=== PATIENT | male | born 1960 | race Caucasian/White ===

== ENCOUNTER 2024-12-24 14:02 | Emergency (ER) | payer OTHER, MEDICARE, SELFPAY ==
[2024-12-24 14:11] VITALS: BP 166/80
[2024-12-24 14:33] LABS: Hematocrit 40.7 % (39.0-52.0); Hemoglobin 14.3 g/dL (13.0-18.0); Mean Corp Hgb Conc. 35.1 g/dL (33.0-37.0); Mean Corpuscular Volume 87.9 fL (80.0-94.0); Nucleated Red Blood Cells % 0 % (-); Platelet Count 267 10^3/uL (130-400); Red Cell Dist. Width 13.5 % (11.5-14.5)
[2024-12-24 14:47] LABS: ALT (SGPT) 27 U/L (0-50); AST (SGOT) 22 U/L (17-59); Albumin 4.7 g/dl (3.5-5.0); Alkaline Phosphatase 65 U/L (38-126); Blood Urea Nitrogen 19 mg/dl (9-20); Calcium 9.6 mg/dl (8.4-10.2); Carbon Dioxide 31 mmol/L (22-30); Chloride 102 mmol/L (98-107); Glucose 101 mg/dl (70-99); Potassium 4.2 mmol/L (3.5-5.1); Sodium 139 mmol/L (135-145); Total Protein 7.1 g/dl (6.3-8.2); eGFR > 60.00
--- NOTE | 2024-12-24 15:34 | ED.GENMED ---
Addendum entered and electronically signed by Ivana Holguin PA-C 12/26/24 06:16:
Preliminary culture grew out Staph aureus. Patient is on doxycycline await finalized culture results
Original Note:
History of Present Illness
<Nicole Martinez NAVIGATION TEACHER - Last Filed: 12/24/24 20:20>
General
Chief Complaint: Post Operative Problem(s)
Source: patient
Exam Limitations: none
Time Seen by Provider: 12/24/24 15:17
Nursing documentation reviewed up to this point in time: agreed with
History of Present Illness
History of Present Illness:
64 yo male w h/o A-fib on Eliquis, HTN, HLD, recent skin cancer removal from left shoulder area, left wrist trigger finger tendon release on 12/10 at [facility] in [place] by Dr. Nunn presents with increasing redness, swelling, pain, and pus drainage
at the site of a recent trigger finger repair surgery. The patient reports that the symptoms began approximately five days ago. Initially, the discomfort was attributed to post-surgical pain; however, the symptoms progressively worsened.
States small amount of honey colored drainage from wrist incision. Denies fever/ chills. Pain 11/14.
Past History
<Nicole Martinez, NAVIGATION TEACHER - Last Filed: 12/24/24 20:20>
Past History
ED Past Medical History: Arrthythmia (a fib on Eliquis), Cancer (skin, Mohs surgery left upper posterior shoulder last week, ), HTN and Hypercholesterolemia
ED Past Surgical History: Orthopedic
Social History
Tobacco: Non-smoker
Personal:
Living: with family
Employment: Employed
Review of Systems
<Nicole Martinez, NAVIGATION TEACHER - Last Filed: 12/24/24 20:20>
Review of Systems
Allergies reviewed?: Yes
All Other Systems: ROS reviewed and negative except as documented in HPI and ROS
Constitutional: Denies fever or chills
Skin: Reports other (swelling, redness, pain left wrist post surgery 14 days ago.)
Phy Exam
<Nicole Martinez NAVIGATION TEACHER - Last Filed: 12/24/24 20:20>
Physical Exam
Physical Exam:
GENERAL: No acute distress. A&Ox3.
CONSTITUTIONAL: Afebrile.
EYES: clear, conjunctivae normal
RESPIRATORY: Regular respirations, nonlabored, lungs clear.
CARDIOVASCULAR: Regular rate and rhythm, no murmurs, no rubs.
GI: Soft, nontender, normal BS
MUSCULOSKELETAL: Moves with ease. Well perfused.
SKIN: Warm, dry, pink, incision on mid left palm healing well. Incision on left wrist radial aspect red with tiny amount of clear yellow drainage. Wrist is +1 swollen compared to opposide wrist, limited ROM due to pain and swelling. Radial pulse
2/4, brisk capillary refill all fingers, all
PSYCH: Normal mood and affect. Well kept, interactive and appropriate
NEUROLOGIC: Awake, alert and oriented. No focal neurological deficits
Course
<Nicole Martinez, NAVIGATION TEACHER - Last Filed: 12/24/24 20:20>
Orders/Labs/Results
Orders:
Orders
12/24/24 14:20
CMP [Comprehensive Metabolic Panel] Urgent
Complete Blood Count/With Diff Urgent
12/24/24 16:04
Wound Culture [Wound/Abscess/Other Culture] Urgent
EMILY Source: Hand
Specimen Description: Left
Date Specimen was Collected: 12/24/24
Time Specimen was Collected: 15:52
12/24/24 16:23
CeFAZolin 2 GRAM [Ancef] 2 grams in 10 ml IV NOW
12/24/24 16:45
Acetaminophen [Tylenol] 1,000 mg PO NOW STA
Abnormal Lab Results
12/24/24
14:20
RBC 4.63 L 10^6/uL
(4.70-6.10)
Carbon Dioxide 31 H mmol/L
(22-30)
Glucose 101 H mg/dl
(70-99)
12/24/24 14:20
12/24/24 14:20
Vital Signs
Initial and Last Documented VS:
Initial Vital Signs
Temp Pulse Resp BP Pulse Ox
98.2 F 66 18 166/80 97
12/24/24 14:11 12/24/24 14:11 12/24/24 14:11 12/24/24 14:11 12/24/24 14:11
Last Documented Vital Signs
Temp Pulse Resp BP Pulse Ox
98.2 F 66 18 166/80 97
12/24/24 14:11 12/24/24 14:11 12/24/24 14:11 12/24/24 14:11 12/24/24 15:38
<Salomon Carolina, DO - Last Filed: 12/24/24 17:09>
Orders/Labs/Results
Orders:
Orders
12/24/24 14:20
CMP [Comprehensive Metabolic Panel] Urgent
Complete Blood Count/With Diff Urgent
12/24/24 16:04
Wound Culture [Wound/Abscess/Other Culture] Urgent
EMILY Source: Hand
Specimen Description: Left
Date Specimen was Collected: 12/24/24
Time Specimen was Collected: 15:52
12/24/24 16:23
CeFAZolin 2 GRAM [Ancef] 2 grams in 10 ml IV NOW
12/24/24 16:45
Acetaminophen [Tylenol] 1,000 mg PO NOW STA
Abnormal Lab Results
12/24/24
14:20
RBC 4.63 L 10^6/uL
(4.70-6.10)
Carbon Dioxide 31 H mmol/L
(22-30)
Glucose 101 H mg/dl
(70-99)
12/24/24 14:20
12/24/24 14:20
Vital Signs
Initial and Last Documented VS:
Initial Vital Signs
Temp Pulse Resp BP Pulse Ox
98.2 F 66 18 166/80 97
12/24/24 14:11 12/24/24 14:11 12/24/24 14:11 12/24/24 14:11 12/24/24 14:11
Last Documented Vital Signs
Temp Pulse Resp BP Pulse Ox
98.2 F 66 18 166/80 97
12/24/24 14:11 12/24/24 14:11 12/24/24 14:11 12/24/24 14:11 12/24/24 15:38
<Nicole Martinez, NAVIGATION TEACHER - Last Filed: 12/24/24 20:20>
MDM/Problems Addressed
Differential Diagnosis Includes:
cellulitis
MDM/Problems Addressed:
64 yo male w h/o A-fib on Eliquis, HTN, HLD, recent skin cancer removal from left shoulder area, left wrist trigger finger tendon release on 12/10 at [facility] in [place] by Dr. Nunn presents with increasing redness, swelling, pain, and pus drainage
at the site of a recent trigger finger repair surgery. The patient reports that the symptoms began approximately five days ago. Initially, the discomfort was attributed to post-surgical pain; however, the symptoms progressively worsened.
States small amount of honey colored drainage from wrist incision. Denies fever/ chills. Pain 11/14.
CBC unremarkable
CMP normal
IV Ancef in
5:[address] Nunn, orthopedic at [facility], spoke with SRIKANTH Heath, sent her pictures.
5:45 p.m.
Ivana ESTRELLA got back to me, requests Doxycycline 100 mg BID and she will call pt in the morning for f/u and appt.
<Nicole Martinez, NAVIGATION TEACHER - Last Filed: 12/24/24 20:20>
*Pulse Oximetry
SaO2: 97
Oxygen Mode of Delivery: Room air
Patient hypoxic: not evaluated
*Critical Care Note
Total Time (30-74mins, 75-104mins- exclusive of procedures): Not Applicable
ED Attending Note
<Nicole Martinez NAVIGATION TEACHER - Last Filed: 12/24/24 20:20>
-
Portions of this chart may have been created with voice recognition software.� Occasional wrong word or��sound alike� substitutions may have occurred due to the inherent limitations of voice recognition software.
<Salomon Carolina DO - Last Filed: 12/24/24 17:09>
ED Attending Note
Patient seen and examined by attending physician: Yes
ED Attending Note:
I have reviewed and agree with history and treatment plan by Nicole. My exam revealed 64-year-old male with left radial wrist wound and erythema surrounding. Will contact orthopedics, surgeon that was performed at [place].
Discharge Plan
Departure
Patient Disposition: Home (Routine Discharge)
Date of Disposition: 12/24/24
Time of Disposition: 17:44
Patient with high blood pressure during this ER visit?: No
Condition: Fair
Discharge Problem:
Cellulitis, wound, post-operative
Instructions: Cellulitis (skin infection) in adults - Discharge instructions
Prescriptions:
New
doxycycline hyclate 100 mg capsule
100 mg PO BID Qty: 20 0RF
oxycodone 5 mg capsule
5 mg PO Q6H PRN (Reason: Pain) Qty: 8 0RF
Referrals:
Franck Nunn MD [Non-Admitting Privileges, Orthopedics] - Tomorrow
Kaye Simms MD [Family Provider, Family Practice]
Activity Restrictions/Additional Instructions:
As we discussed, I spoke with Ivana at Dr. Nunn's office. She will give you a call tomorrow in the morning to schedule an appointment.
I sent a prescription to your pharmacy for doxycycline 100 mg to take twice a day for 10 days
Rest the arm with it elevated to the level of your heart or slightly higher
Tylenol as needed for pain. I sent a prescription to your pharmacy for Percocet (Oxycodone) to use if the Tylenol does not help
Interventions
Interventions:
*Risk Screen - Suicide Last Done: 12/24/24 14:11
*General Assessment Last Done: 12/24/24 14:11
*Neglect/Abuse Screening Last Done: 12/24/24 16:53
*ED- Fall Risk Assessment Last Done: 12/24/24 16:53
*ED COVID-19 Vaccine History Last Done: 12/24/24 16:53
*Nursing Disposition Last Done: 12/24/24 18:00
ED-Skin Assessment Last Done: 12/24/24 16:11
Discharge Date and Time
Discharge Date/Time: 12/24/24 18:00
Print Language: [id number]
[2024-12-24] MEDS: ANCEF 10 IV (16:49)
[2024-12-24] MEDS: TYLENOL 1000 MG PO (16:49)
== END 2024-12-24 18:00 | disposition home or self-care (01) ==
LOC: EMR 14:02
PROVIDERS: Student in an Organized Health Care Education/Training Program; EMERGENCY PHYSICIAN Emergency Medicine; FAMILY PHYSICIAN Family Medicine
DX: T81.49XA Infection following a procedure, other surgical site, initial encounter (principal); L03.114 Cellulitis of left upper limb; I48.91 Unspecified atrial fibrillation; I10 Essential (primary) hypertension; E78.00 Pure hypercholesterolemia, unspecified; Z79.01 Long term (current) use of anticoagulants; Z85.828 Personal history of other malignant neoplasm of skin
CPT/HCPCS: 99284; 96374; 80053; 85025; 87070; 87147; 87186; 87205

== ENCOUNTER 2025-04-01 12:45 | Emergency (ER) | payer MEDICARE, OTHER, SELFPAY ==
[2025-04-01 12:47] VITALS: BP 119/68
[2025-04-01 13:11] VITALS: BP 109/64
--- NOTE | 2025-04-01 13:20 | ED.GENMED ---
History of Present Illness
General
Chief Complaint: Medication Reaction
Time Seen by Provider: 04/01/25 13:09
History of Present Illness
History of Present Illness:
Patient is a 65-year-old man presenting to the emergency department with abdominal pain. Patient states he has been on Mounjaro for 11 weeks now. Last week he had his third week of 5 mg dose. He states after the third dose he developed abdominal
bloating pain nausea excessive flatulence, diarrhea and heartburn. Initially thought it was a stomach bug but then talked to his primary who stated that it could be secondary to the Mounjaro. He also had hives. He was given Zyrtec and the
symptoms did slightly improved. His symptoms are now resolved however he still has persistent abdominal pain to the left lower quadrant. He has a history of diverticulitis. His primary care sent him to the emergency department for further
evaluation given the ongoing abdominal pain. No fever or chills. No urinary symptoms. No scrotal swelling or pain.
Past History
Past History
ED Past Medical History: Arrthythmia (a fib on Eliquis), Cancer (skin, Mohs surgery left upper posterior shoulder last week, ), HTN and Hypercholesterolemia
ED Past Surgical History: Orthopedic
Social History
Tobacco: Non-smoker
Personal:
Living: with family
Employment: Employed
Phy Exam
Physical Exam
Physical Exam:
GENERAL: in no acute distress
HEENT: normocephalic, extraocular movements intact, moist oral mucosa
NECK: normal inspection
RESPIRATORY: no respiratory distress, clear to auscultation bilaterally
CARDIOVASCULAR: regular rate and rhythm
ABDOMEN/: soft, non-distended, tender to palpation in the left lower quad, no rebound or guarding
EXTREMITIES: non-tender, no edema/swelling
NEUROLOGIC: awake and alert, moves all extremities
SKIN: warm
Course
Orders/Labs/Results
Orders:
Orders
04/01/25 13:20
CT Abd/pelvis W Iv Cont Urgent
Comment:
Reason For Exam: llq pain
Urinalysis Reflex To Culture Urgent
04/01/25 13:39
Complete Blood Count/With Diff Urgent
Comprehensive Metabolic Panel Urgent
Abnormal Lab Results
04/01/25
13:39
RBC 4.59 L 10^6/uL
(4.70-6.10)
Absolute Neuts (auto) 6.7 H 10^3/uL
(1.4-6.5)
Absolute Monos (auto) 0.7 H 10^3/uL
(0.1-0.6)
Lymphocytes % 20.1 L %
(20.5-51.1)
Sodium 133 L mmol/L
(135-145)
Glucose 103 H mg/dl
(70-99)
Total Protein 5.8 L g/dl
(6.3-8.2)
04/01/25 13:39
04/01/25 13:39
Vital Signs
Initial and Last Documented VS:
Initial Vital Signs
Temp Pulse Resp BP Pulse Ox
98.6 F 78 18 119/68 98
04/01/25 12:47 04/01/25 12:47 04/01/25 12:47 04/01/25 12:47 04/01/25 12:47
Last Documented Vital Signs
Temp Pulse Resp BP Pulse Ox
98.6 F 72 19 114/62 95
04/01/25 12:47 04/01/25 14:45 04/01/25 14:45 04/01/25 14:00 04/01/25 14:45
MDM/Problems Addressed
Differential Diagnosis Includes:
Patient is a 65-year-old male on Mounjaro presenting to the emergency department with symptoms after increasing his Mounjaro dose that mostly resolved but has persistent left lower quadrant abdominal pain. On arrival vitals unremarkable. Exam does
show tenderness to the left lower quadrant. Differential is broad but consists of diverticulitis versus Mounjaro side effect versus gastroenteritis versus urinary tract infection though less likely. Will check blood work urine and CT scan. I did
offer pain control the patient declined at this time.
*Pulse Oximetry
SaO2: 98
Oxygen Mode of Delivery: Room air
Patient hypoxic: no
*Critical Care Note
Total Time (30-74mins, 75-104mins- exclusive of procedures): Not Applicable
Update Note
Update Note:
Blood work reassuring. CT scan consistent with diverticulitis. Given patient is overall well-appearing with no complications will discharge with p.o. antibiotics.
ED Attending Note
-
Portions of this chart may have been created with voice recognition software.� Occasional wrong word or��sound alike� substitutions may have occurred due to the inherent limitations of voice recognition software.
Discharge Plan
Departure
Patient Disposition: Home (Routine Discharge)
Date of Disposition: 04/01/25
Time of Disposition: 16:08
Patient with high blood pressure during this ER visit?: No
Discharge Problem:
Diverticulitis
Instructions: Diverticulitis (DC)
Prescriptions:
New
amoxicillin-pot clavulanate 875-125 mg tablet
1 tab PO Q12H 7 Days Qty: 14 0RF
No Action
doxycycline hyclate 100 mg capsule
100 mg PO BID Qty: 20 0RF
oxycodone 5 mg capsule
5 mg PO Q6H PRN (Reason: Pain) Qty: 8 0RF
Referrals:
Kaye Simms MD [Family Provider, Family Practice]
Activity Restrictions/Additional Instructions:
Thank You for choosing [facility].
It was a pleasure meeting you and taking part in your care.
You were seen in the Emergency Department today for abdominal pain. While you were here we performed blood work, which was reassuring. Your CT scan did show diverticulitis. Please take the antibiotics as prescribed
We would like for you to follow up with your primary care physician for further evaluation. If you experience fever, worsening of your symptoms, or develop any other new or concerning symptoms, please return to the Emergency Department immediately.
Please see the attached sheet for additional information.
Interventions
Interventions:
*Risk Screen - Suicide Last Done: 04/01/25 12:47
*General Assessment Last Done: 04/01/25 12:47
*Neglect/Abuse Screening Last Done: 04/01/25 12:47
*ED- Fall Risk Assessment Last Done: 04/01/25 13:34
*ED COVID-19 Vaccine History Last Done: 04/01/25 12:47
*ED Influenza Vaccine History Last Done: 04/01/25 12:47
ED-Skin Assessment Last Done: 04/01/25 13:44
ED- Pulmonary Assessment Last Done: 04/01/25 13:44
ED-EENT Assessment Last Done: 04/01/25 15:10
Discharge Date and Time
Print Language: ANDORRAN
[2025-04-01 13:49] LABS: Hematocrit 39.7 % (39.0-52.0); Hemoglobin 13.8 g/dL (13.0-18.0); Mean Corp Hgb Conc. 34.8 g/dL (33.0-37.0); Mean Corpuscular Volume 86.5 fL (80.0-94.0); Nucleated Red Blood Cells % 0 % (-); Platelet Count 265 10^3/uL (130-400); Red Cell Dist. Width 14.0 % (11.5-14.5)
[2025-04-01 14:00] VITALS: BP 114/62
[2025-04-01 14:01] LABS: ALT (SGPT) 27 U/L (0-50); AST (SGOT) 19 U/L (17-59); Albumin 3.5 g/dl (3.5-5.0); Alkaline Phosphatase 61 U/L (38-126); Blood Urea Nitrogen 11 mg/dl (9-20); Calcium 8.4 mg/dl (8.4-10.2); Carbon Dioxide 30 mmol/L (22-30); Chloride 100 mmol/L (98-107); Glucose 103 mg/dl (70-99); Potassium 3.9 mmol/L (3.5-5.1); Sodium 133 mmol/L (135-145); Total Protein 5.8 g/dl (6.3-8.2); eGFR > 60.00
== END 2025-04-01 16:49 | disposition home or self-care (01) ==
LOC: EMR 12:45
PROVIDERS: EMERGENCY PHYSICIAN Student in an Organized Health Care Education/Training Program; FAMILY PHYSICIAN Family Medicine
DX: K57.32 Diverticulitis of large intestine without perforation or abscess without bleeding (principal); I48.91 Unspecified atrial fibrillation; I10 Essential (primary) hypertension; E78.00 Pure hypercholesterolemia, unspecified; Z79.01 Long term (current) use of anticoagulants; Z85.828 Personal history of other malignant neoplasm of skin
CPT/HCPCS: 99284; 74177; 80053; 85025; Q9967